=== PATIENT | male | born 1995 | race African-American/Black ===

== ENCOUNTER 2017-10-06 14:06 | Emergency (ER) | payer SELFPAY ==
[2017-10-06] MEDS ORDERED: Ibuprofen 200 MG TAB ONE (15:16)
--- NOTE | 2017-10-06 20:10 | RAD ---
LEFT THUMB THREE VIEWS 10/06/17 No fracture are area of bony destruction was seen. The joints appear normal. On the lateral view ther e was a very tiny deni of bone seen on the palmar aspect of the IP joint. It may be a sesamoid bone or old injury. I doubt that it is related to the current symptoms. IMPRESSION: No acute finding. POS: HOME
== END 2017-10-06 15:21 | disposition home or self-care (01) ==
LOC: BURERS 14:06
DX: L03.012 Cellulitis of left finger (principal); B35.2 Tinea manuum; F41.9 Anxiety disorder, unspecified; F32.9 Major depressive disorder, single episode, unspecified; F17.210 Nicotine dependence, cigarettes, uncomplicated
CPT/HCPCS: 10060; 87070; 87077; 87186; 87205